=== PATIENT | male | born 1935 | race Caucasian/White ===

== ENCOUNTER 2023-11-15 14:05 | Outpatient (CLI) | payer MEDICARE, OTHER ==
--- NOTE | 2023-11-15 15:59 | XRAY Report ---
PROCEDURE: Pelvis 1-2V INDICATIONS: HIP PAIN, LEFT TECHNIQUE: 1 view(s) of the pelvis acquired. COMPARISON: None. FINDINGS: Bones: Moderate bilateral hip arthrosis. No acute displaced fracture or dislocation. Enthesopathy at the lesser trochanter is seen bilaterally. Soft tissues: Nonacute appearing bone fragments versus ossifications seen adjacent to the lesser tro chanters bilaterally. There are pelvic postsurgical changes. Partially visualized lumbosacral degenerative changes. IMPRESSION: Moderate bilateral hip arthrosis. Lesser trochanter enthesopathy bilaterally and adjacent soft tissue ossification versus nonacute appe aring bone fragments. If there is high concern for further derangement, consider MRI evaluation. Partially seen lumbosacral degenerative changes Reviewed by: Vick Erazo MD on 11/15/2023 3:58 PM PDT Approved by: Vick Erazo MD on 11/15/2023 3:58 PM PDT Station ID: [id number]
--- NOTE | 2023-11-15 16:01 | XRAY Report ---
PROCEDURE: Sacrum/Coccyx INDICATIONS: OTHER LOW BACK PAIN TECHNIQUE: 3 views of the sacrum and coccyx acquired. COMPARISON: None. FINDINGS: Bones: Lumbosacral degenerative changes. Pelvis and hip findings are separately dictated. No acute di splaced fracture or dislocation of the sacroiliac regions. Evaluation is obscured by bowel gas partic ularly on frontal view. No pubic diastases Soft tissues: Postsurgical changes in the pelvis. 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 No acute radiographic abnormality otherwise . If there is high concern for further derangement, consider MRI evaluation. Reviewed by: Vick Erazo MD on 11/15/2023 3:59 PM PDT Approved by: Vick Erazo MD on 11/15/2023 3:59 PM PDT Station ID: [id number]
== END 2023-11-15 23:59 | disposition home or self-care (01) ==
LOC: DI.N 14:05
PROVIDERS: ATTEND Physician Assistant Medical
DX: M16.0 Bilateral primary osteoarthritis of hip (principal); M76.9 Unspecified enthesopathy, lower limb, excluding foot; M47.817 Spondylosis without myelopathy or radiculopathy, lumbosacral region